=== PATIENT | male | born 1960 | race Caucasian/White ===

== ENCOUNTER → 2017-02-20 | Outpatient (CLI) | payer OTHER ==
--- NOTE | 2017-02-21 12:40 | EST ---
EXERCISE STRESS DATE OF SERVICE: 02/20/2017 AGE: 57 SEX: Male HT: 71 WT: 225 PROTOCOL: Scooby STAGE: III DURATION OF EXERCISE: 9 minutes HEART RATE REST: 94 BLOOD PRESSURE REST: 184/109 MAXIMUM HEART RATE ACHIEVED: 144 MAXIMUM BLOOD PRESSURE: 217/80 85% MPHR: 139 100% MPHR: 163 METS: 10.3 INDICATIONS: Chest pain. Baseline heart rate 94 beats per minute. Baseline blood pressure 184/109 mmHg. Baseline 12-lead ECG showed normal sinus rhythm, normal cardiac intervals. Patient exercised on a Scooby protocol for 9 minutes, achieving a peak heart rate of 144 beats per minute. Hypertensive response to exercise. No ECG evidence for ischemia. No arrhythmias. IMPRESSION: 1. Good exercise capacity. 2. Hypertension. 3. No arrhythmias. MMODL / IJN: [id number] /
--- NOTE | 2017-02-21 22:22 | ECHOF ---
Referral Reason:M7.89 chest pain MEASUREMENTS -------- HEIGHT: 182.9 cm WEIGHT: 102.1 kg BP: RVIDd: 3.2 cm (< 3.3) IVSd: 1.6 cm (0.6 - 1.1) LVIDd: 4.5 cm (3.9 - 5.3) LVPWd: 1.6 cm (0.6 - 1.1) IVSs: 2.0 cm LVIDs: 1.9 cm LVPWs: 1.9 cm LA Diam: 1.5 cm (2.7 - 3.8) Ao Diam: 3.4 cm (2.0 - 3.7) AV Cusp: 2.2 cm (1.5 - 2.6) LA Diam: 3.4 cm (2.7 - 3.8) MV EXCURSION: 22.907 mm (> 18.000) MV EF SLOPE: 68 mm/s (70 - 150) EPSS: 0.7 cm MV E Homero: 0.77 m/s MV DecT: 191 ms MV A Homero: 0.64 m/s MV E/A Ratio: 1.20 RAP: 5.00 mmHg RVSP: 30.02 mmHg FINDINGS -------- Sinus rhythm. This was a technically good study. The left ventricular size is normal. There is moderate concentric left ventricular hypertrophy. Overall left ventricular systolic function is normal with, an EF between 55 - 60 %. The right ventricle is normal in size and function. The left atrium is normal in size. The right atrium is normal in size. The aortic valve is trileaflet, and appears structurally normal. No aortic stenosis or regurgitation. The mitral valve leaflets are mildly thickened. There is trace mitral regurgitation. Trace tricuspid regurgitation present. The right ventricular systolic pressure, as measured by Doppler, is 30.02mmHg. Pulmonic valve appears structurally normal. The aortic root size is normal. The pericardium is normal. CONCLUSIONS -------- 1. Sinus rhythm. 2. The mitral valve leaflets are mildly thickened. 3. There is trace mitral regurgitation. 4. Trace tricuspid regurgitation present. 5. The right ventricular systolic pressure, as measured by Doppler, is 30.02mmHg. 6. Pulmonic valve appears structurally normal. 7. The aortic root size is normal. 8. The pericardium is normal. THE AORTIC ROOT APPEARS DILATED VISUALLY, CONSIDER ALTERNATIVE IMAGING TECHNIQUE FOR MEASURING AORTIC ROOT AND ASCENDING AORTA SIZE 9. This was a technically good study. 10. The left ventricular size is normal. 11. There is moderate concentric left ventricular hypertrophy. 12. Overall left ventricular systolic function is normal with, an EF between 55 - 60 %. 13. The right ventricle is normal in size and function. 14. The left atrium is normal in size. 15. The right atrium is normal in size. 16. The aortic valve is trileaflet, and appears structurally normal. No aortic stenosis or regurgitation. DATA PROCESSING CLERK: Romelia Fried RDCS
== END | disposition home or self-care (01) ==
LOC: RADNMMAIN 10:53
PROVIDERS: ATTEND Internal Medicine
DX: I51.7 Cardiomegaly (principal); I10 Essential (primary) hypertension; R07.89 Other chest pain
CPT/HCPCS: 93017; 93306

== ENCOUNTER → 2022-02-06 | Outpatient (CLI) | payer BC ==
--- NOTE | 2022-02-08 09:20 | CT ---
EXAMINATION TYPE: CT urogram wo/w con DATE OF EXAM: 02/06/2022 COMPARISON: None HISTORY: Gross hematuria CT DLP: 3946 mGycm Automated exposure control for dose reduction was used. CONTRAST: Performed with IV Contrast, patient injected with 75 mL of Isovue 370. FINDINGS: Prostate gland is enlarged. Prostate calcifications and heterogeneity related with PSA. On the posterior margin greater paracentrally to the right of the bladder wall there is thickening an d nodularity suspicious for neoplasm. No hydronephrosis. No nephrolithiasis. No evidence of suspicious solid or cystic renal mass Adrenal glands, gallbladder, pancreas, spleen, liver have a normal appearance. Aorta normal caliber. Mild induration of the mesentery can be seen with a diverticulitis. Bowel gas p attern nonspecific with no obstruction. Lung bases clear. No free fluid or free air. Atrophic and degenerative changes in the spine. Grade 1 anterior listhesis L4 on L5 with facet arthropathy No pathologic adenopathy. Hypertrophic arthropathy of the SI joints suggestive of osteoarthritis. IMPRESSION: 1. Thickening of posterior wall of bladder greater than right with lobulation highly suspicious for n eoplasm. Recommend cystoscopy. No definite pathologic adenopathy. 2. Minimal induration of the mesenteric fat associated with ventriculitis correlate clinically. 3. Prostate hypertrophy and heterogeneity correlate with PSA.
== END | disposition home or self-care (01) ==
LOC: RADCTMAIN 13:48
PROVIDERS: ATTEND Urology
DX: N40.0 Benign prostatic hyperplasia without lower urinary tract symptoms (principal); N32.89 Other specified disorders of bladder
CPT/HCPCS: 74178; 74400; Q9967

== ENCOUNTER 2022-03-17 13:54 | Emergency (ER) | payer BC ==
[2022-03-17 14:46] VITALS: BP 133/82; PULSE 64; RESP 18; TEMP 97.8
--- NOTE | 2022-03-17 15:26 | ED ---
Male Urogenital HPI - General Chief complaint: Urogenital Stated complaint: Surgery Complications Time Seen by Provider: 03/17/22 14:51 Source: patient, family, RN notes reviewed Mode of arrival: ambulatory Limitations: no limitations - History of Present Illness Initial comments: 62-year-old male with a history of a cystoscopy done several days ago with biopsy who has an indwelling Figueroa catheter who states catheter quit working properly he was having urine weak around the catheter. He does have blood and some clots. No fevers chills nausea vomiting sweats. Well getting registered the patient states the bag appeared to start functioning again with the catheter he had a large amount of urine that was blood-tinged into the Figueroa leg bag. MD Complaint: other - Related Data Allergies Allergy/AdvReac Type Severity Reaction Status Date / Time No Known Allergies Allergy Verified 03/17/22 14:46 Review of Systems ROS Statement: Those systems with pertinent positive or pertinent negative responses have been documented in the HPI. ROS Other: All systems not noted in ROS Statement are negative. Past Medical History Past Medical History: Hypertension History of Any Multi-Drug Resistant Organisms: None Reported Past Psychological History: No Psychological Hx Reported Smoking Status: Never smoker Past Alcohol Use History: Occasional Past Drug Use History: None Reported General Exam - General Exam Comments Initial Comments: This is a well-developed well-nourished awake alert oriented 4 male Limitations: no limitations General appearance: alert, in no apparent distress Head exam: Present: atraumatic, normocephalic, normal inspection Eye exam: Present: normal appearance, PERRL, EOMI. Absent: scleral icterus, conjunctival injection, periorbital swelling ENT exam: Present: normal exam, mucous membranes moist Neck exam: Present: normal inspection. Absent: tenderness, meningismus, lymphadenopathy Respiratory exam: Present: normal lung sounds bilaterally. Absent: respiratory distress, wheezes, rales, rhonchi, stridor Cardiovascular Exam: Present: regular rate, normal rhythm, normal heart sounds. Absent: systolic murmur, diastolic murmur, rubs, gallop, clicks GI/Abdominal exam: Present: soft, normal bowel sounds. Absent: distended, tenderness, guarding, rebound, rigid Rectal exam: Present: deferred exam: Present: other (Figueroa catheter in place evidence of blood-tinged urine some clot noted.) Extremities exam: Present: normal inspection, full ROM, normal capillary refill. Absent: tenderness, pedal edema, joint swelling, calf tenderness Back exam: Present: normal inspection Neurological exam: Present: alert, oriented X3, CN II-XII intact Psychiatric exam: Present: normal affect, normal mood Skin exam: Present: warm, dry, intact, normal color. Absent: rash Course Vital Signs 03/17/22 14:36 Temperature 97.8 F Pulse Rate 64 Respiratory 18 Rate Blood Pressure 133/82 O2 Sat by Pulse 95 Oximetry Medical Decision Making - Medical Decision Making Patient catheter was easily flushed some clot in blood-tinged urine removed pa tient did not require catheter change. Patient does have follow-up with Dr. Phillips. We did discuss adequate hydration. Disposition Clinical Impression: Figueroa catheter problem Disposition: HOME SELF-CARE Condition: Good Instructions (If sedation given, give patient instructions): How to Change a Catheter Drainage Bag (DC) Is patient prescribed a controlled substance at d/c from ED?: No Referrals: Gilbert Hammonds MD [Primary Care Provider] - 1-2 days Decision Date: 03/17/22 Decision Time: 16:12
== END 2022-03-17 16:20 | disposition home or self-care (01) ==
LOC: EC 13:54
DX: T83.091A Other mechanical complication of indwelling urethral catheter, initial encounter (principal); I10 Essential (primary) hypertension
CPT/HCPCS: 51798; 99283

== ENCOUNTER 2022-04-19 17:43 | Emergency (ER) | payer BC ==
[2022-04-19 19:00] VITALS: BP 135/80; PULSE 52; RESP 20; TEMP 97.9
--- NOTE | 2022-04-19 21:16 | ED ---
General Adult HPI - General Chief complaint: Urogenital Stated complaint: post op, catheter problems Time Seen by Provider: 04/19/22 19:35 Source: patient Mode of arrival: ambulatory Limitations: no limitations - History of Present Illness Initial comments: This is a 62-year-old male with a past medical history including hypertension presents emergency department for urinary retention. The patient did undergo a TURP procedure by Dr. Phillips earlier today and was sent home at approximately 4:00 PM. The patient stated that once he was home, he started to experience suprapubic fullness and did not have a significant amount of urinary output. The patient was concerned and try to call the office however there was no answer. The patient continued discomfort speaking to the emergency department for evaluation. The patient did have suprapubic discomfort and was walking around the room secondary to this. The patient denied any other acute pain or complaints at this time. The patient denied any nausea, vomiting, fevers and chills. - Related Data Allergies Allergy/AdvReac Type Severity Reaction Status Date / Time No Known Allergies Allergy Verified 04/19/22 19:00 Review of Systems ROS Statement: Those systems with pertinent positive or pertinent negative responses have been documented in the HPI. ROS Other: All systems not noted in ROS Statement are negative. Past Medical History Past Medical History: Hypertension History of Any Multi-Drug Resistant Organisms: None Reported Additional Past Surgical History / Comment(s): urethral transection. Past Psychological History: No Psychological Hx Reported Smoking Status: Never smoker Past Alcohol Use History: Occasional Past Drug Use History: None Reported General Exam Limitations: no limitations General appearance: alert, other (In moderate distress 2/2 suprapubic abdominal pain) Head exam: Present: atraumatic, normocephalic Eye exam: Present: normal appearance, PERRL, EOMI Pupils: Present: normal accommodation ENT exam: Present: normal exam, normal oropharynx, mucous membranes moist Neck exam: Present: normal inspection, full ROM Respiratory exam: Present: normal lung sounds bilaterally Cardiovascular Exam: Present: regular rate, normal rhythm, normal heart sounds GI/Abdominal exam: Present: soft, other (Suprapubic tenderness noted) Rectal exam: Present: deferred exam: Present: normal inspection, other (Figueroa catheter in place) External exam: Present: normal external exam Extremities exam: Present: normal inspection, full ROM Back exam: Present: normal inspection, full ROM Neurological exam: Present: alert, oriented X3, CN II-XII intact Psychiatric exam: Present: normal affect, normal mood Skin exam: Present: warm, dry Course Vital Signs 04/19/22 18:57 Temperature 97.9 F Pulse Rate 52 L Respiratory 20 Rate Blood Pressure 135/80 O2 Sat by Pulse 97 Oximetry Medical Decision Making - Medical Decision Making The patient was seen and evaluated in the emergency department. Initially on arrival, the patient was in discomfort secondary. A bladder scanner was did have the cc of urine scanned. The patient continued fullness and gentle Figueroa flushing was obtained. Urine could not be returned back with flushing and therefore the Figueroa was possibly blocked. The urologist on-call, Dr. Kaufman, was contacted and he did recommend Figueroa replacement. I did replace the Figueroa with another 20F Figueroa catheter. The patient tolerated the procedure well. The patient was able to flush several small blood clots in the new catheter into the have significant resolution of his symptoms. The patient did not however have a significant amount of urinary retention at this time. A repeat bladder scan was obtained was 51 mL. The patient did have some continued urinary flow and the catheter and therefore was seems so for discharge at this time. The patient was advised to follow-up with his urologist previous is scheduled and to continue to hydrate in order to have his Figueroa continuously train. The patient was advised to report back to the emergency department if he has any issues with his Figueroa catheter including any decreased output and suprapubic pain. The patient was agreeable to this as was his and all other questions were answered. The patient was discharged home in stable condition. Disposition Clinical Impression: Urinary retention, Indwelling catheter replaced Disposition: HOME SELF-CARE Condition: Stable Instructions (If sedation given, give patient instructions): Urinary Retention in Men (ED), Figueroa Catheter Placement and Care (ED) Is patient prescribed a controlled substance at d/c from ED?: No Referrals: Gilbert Hammonds MD [Primary Care Provider] - 1-2 days Time of Disposition: 21:10
== END 2022-04-19 21:31 | disposition home or self-care (01) ==
LOC: EC 17:43
DX: Z46.6 Encounter for fitting and adjustment of urinary device (principal); I10 Essential (primary) hypertension
CPT/HCPCS: 51798; 99283

== ENCOUNTER → 2022-05-18 | Outpatient (CLI) | payer BC ==
--- NOTE | 2022-05-18 10:08 | MR ---
EXAMINATION TYPE: MR Prostate wo/w con DATE OF EXAM: 05/18/2022 9:51 AM COMPARISON: None. CLINICAL INDICATION:Male, 62 years old with history of R97.20 ELEVATED PSA; TECHNIQUE: Multi-planar, multi-sequence imaging of the pelvis is performed prior to and following the uncomplicated administration of bolus intravenous gadolinium. CONTRAST: 10 Gadavist Interpretive Criteria: PI-RADS v2.1 SERUM PSA: 5.2 01/15/2022 SURGICAL PATHOLOGY: No data available. FINDINGS: Prostatic dimensions: 5.7 x 6.4 x 3.6 cm. Ellipsoid Volume:68.76 (PSA density=0.08 ng/mL/mL) CENTRAL GLAND (Central and Transition Zones/CZ+TZ): Multiple bilateral, heterogenous appearing hypertrophic stromal nodules, without suspicious lesion. M edian lobe hypertrophy with protrusion into the base of the bladder. (PI-RADS 2) PERIPHERAL ZONE (PZ): Bilateral indistinct areas of low ADC, and low T2 signal, No evidence of masslike abnormality, or loc alized perfusional hypervascularity, to further suggest a focus of clinically significant prostate ca ncer. (PI-RADS 2) SEMINAL VESICLES (SV): Symmetric and unremarkable. PERIPROSTATIC TISSUES: Unremarkable. LYMPH NODES: No enlarged pelvic lymph node. REMAINING PELVIS: Bladder wall is within normal limits given distention. No abnormal free or organized intrapelvic fluid collection. No pathologic bowel dilation or mural thickening. Fat-containing inguinal hernias bilaterally. OSSEOUS STRUCTURES: No suspicious osseous abnormality. IMPRESSION: 1. No specific features for high-risk prostate cancer. Maximum PI-RADS score: 2. 2. Moderate BPH, estimated gland volume 58 mL.
== END | disposition home or self-care (01) ==
LOC: RADMRIMAIN 08:35
PROVIDERS: ATTEND Urology
DX: N40.0 Benign prostatic hyperplasia without lower urinary tract symptoms (principal); R97.20 Elevated prostate specific antigen [PSA]
CPT/HCPCS: 72197; A9585

== ENCOUNTER 2023-09-02 10:25 | Day surgery (SDC) | payer BC ==
[~2023-09-02 10:25] MED LIST: LACTATED RINGERS 1,000 ML IV SCH
[2023-09-02] MEDS: LACTATED RINGERS 1,000 ML IV ONE (11:07)
[2023-09-02 11:24] VITALS: RESP 18; TEMP 97.6
[2023-09-02] MEDS ORDERED: PROPOFOL 10 MG/ML 20 ML VIAL IV ONE (12:07)
--- NOTE | 2023-09-02 12:26 | P.PCN ---
Date of Procedure: 09/02/23 Procedure(s) Performed: BRIEF HISTORY: Patient is a 63-year-old pleasant White male scheduled for an elective colonoscopy as a part of Screening for colon cancer and family history of colon cancer. His mother was diagnosed with colon cancer at age 70. PROCEDURE PERFORMED: Colonoscopy with biopsy. PREOPERATIVE DIAGNOSIS: Screening for colon cancer and family history of colon cancer. IV sedation per Anesthesia. PROCEDURE: After informed consent was obtained, the patient, was brought into the endoscopy unit. IV sedation was administered by Anesthesia under continuous monitoring. Digital rectal examination was normal. Initially the Olympus CF-160 flexible video colonoscope was then inserted in the rectum, gradually advanced into the cecum without any difficulty. Careful examination was performed as the scope was gradually being withdrawn. Ileocecal valve and the appendiceal orifice were visualized and appeared normal. Prep was excellent. Mucosa of the cecum, ascending colon, Appeared normal. The transverse colon there was a 5 mm polyp that was removed by cold biopsy. Rest of thetransverse colon, descending colon, sigmoid colon, and rectum appeared normal. Retroflexion was performed in the rectum and Small internal hemorrhoids were seen. The patient tolerated the procedure well. IMPRESSION: 5 mm transverse colon polyp status post removal by cold biopsy Rest of the colon appeared normal Small internal hemorrhoids RECOMMENDATIONS: Findings of this examination were discussed with the patient as well as his family. He was advised to follow with the biopsy results. Recommend repeat colonoscopy in 5 years because of the family history of colon cancer
[2023-09-02 12:54] VITALS: BP 153/86; PULSE 51
== END 2023-09-02 13:09 | disposition home or self-care (01) ==
LOC: ORWHC2ENDO 10:25
PROVIDERS: ATTEND Internal Medicine Gastroenterology
DX: Z12.11 Encounter for screening for malignant neoplasm of colon (principal); D12.3 Benign neoplasm of transverse colon; K64.8 Other hemorrhoids; I10 Essential (primary) hypertension; G47.33 Obstructive sleep apnea (adult) (pediatric); Z85.51 Personal history of malignant neoplasm of bladder; Z80.0 Family history of malignant neoplasm of digestive organs; Z79.899 Other long term (current) drug therapy; Z98.890 Other specified postprocedural states
CPT/HCPCS: 88305; 45380; J2704